=== PATIENT | male | born 1965 | race Two or more races ===

== ENCOUNTER 2024-11-07 09:28 | Outpatient (AMB) | payer MEDICAID, SELFPAY ==
--- NOTE | 2024-11-07 09:42 | ORTHONT_ITS ---
Vital signs 11/07/24 09:49 Height 1.68 m Height Method Measured Weight 93.043 kg Weight Measurement Method Standing Scale BMI 33.0 BP 149/91 H Blood Pressure Source Automatic Cuff Blood Pressure Location Right Upper Arm Position Sitting Respiration 18 Pulse 72 Pulse Source Monitor Temp 97.8 F Temp Source Temporal Artery Scan Pulse Oximetry (%) 92 L Oxygen Delivery Method Room Air Med/Allergies Allergies & Medications Allergies wheat Allergy (Verified 11/07/24 09:50) Medication Reconciliation No Known Home Medications 11/07/24 [History Confirmed 11/07/24] Exam Exam Patient is in no acute distress and is cooperative with the examination today. Breathing is nonlabored. Patient has a normal mood and affect. Bilateral extremities were evaluated and demonstrates sensation intact to light touch. Palpable pedal pulses are present. No significant edema is present. Bilateral hips were examined. The patient has no pain with log roll of the hips. Internal rotation to 30 degrees and external rotation to 30 degrees is painless. Negative FADIR. Right knee is nontender to palpation. Range of motion 0 to 105 degrees Left knee was examined today. The left knee is in varus alignment. Range of motion from 0-115 degrees. Knee is stable to varus and valgus as well as AP translation with <5mm. Patient has a negative McMurrays. There is no pain with patellofemoral compression and no crepitus noted. The knee is tender to palpation medially. Assessment and Plan Problem List (1) Arthritis of left knee: Status: Acute Plan: Patient is a pleasant 59-year-old male with left knee pain and left knee arthritis. We discussed different treatment options. I recommend weightbearing x-rays to better evaluate the severity of the arthritis. He also has a meniscal tear and a subchondral fracture. We will see him back after his x-rays are done Office Procedures GNS Level of Care Nursing/Assessment Patient Status: Initial/New Patient Nursing Assessment/Reassesment: Medication Reconciliation, Update PMH in EMR and Vital Signs Coordination of Care: Complex Care and Chronic Disease 1-5, Education Complex Pt/Fam, Consent,records obtained, informed consent, Lab and Imaging orders, Results/Orders obtained and Staff clarify orders New Patient Charge New Patient Point Assignment: 1109 New Patient Point Charge: GENERAL CLEANER Level 3 (4113-0572) [place] Intake Visit Data Collection New Patient or Established: New Patient (never been to [facility]) Reason for Visit:: LEFT KNEE PAIN Seen by Clinical Staff ONLY (RN/MA): No 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 The pain is affecting his quality life and happiness. He has had over 4 injections and has tried ibuprofen in the past. He reports the pain has not improved significantly with the injections. He was found to have a subchondral fracture as well as meniscal tears on MRI. He has been using a cane. Personal History Occupation: [employer] PMH: none BMI Counceling provided: Yes Pain Pain level (0-10): 6 Pain location: anterior Pain quality: sharp Pain timing: increases with activity Associated signs & symptoms: weakness Ambulatory data Ambulatory device: cane Treatments Number of previous injections: 4 Improvement with previous injections: No Improvement with PT: No Improvement with NSAIDS: no Review of Systems Review of Systems: All systems negative unless otherwise noted in HPI.
[2024-11-07 09:49] VITALS: BP 149/91; PULSE 72; RESP 18; TEMP 36.6; O2SAT 92; BMI 33.0
--- NOTE | 2024-11-07 10:04 | XR_ITS ---
Examination: Bilateral knees 2 views Right lateral knee left lateral knee 2 views Right axial knee left axial knee 2 views TECHNIQUE: Bilateral AP knees standing single view, bilateral PA knees standing 30 degrees flexion single view Standing right lateral knee left lateral knee 2 views Right axial knee left axial knee 2 views total 6 views INDICATIONS: Bilateral knee pain beginning 18 months ago FINDINGS: Moderate osteopenia. Total right knee arthroplasty. Satisfactory alignment. No loosening of the prosthetic components. Moderate to advanced narrowing medial joint space left knee Moderate osteoarthritis left patellofemoral joint IMPRESSION:: Moderate to advanced narrowing medial joint space left knee Moderate osteoarthritis left patellofemoral joint
== END 2024-11-07 10:07 | disposition home or self-care (01) ==
LOC: HODSRG 09:28
PROVIDERS: PCP Nurse Practitioner Family; Referring Provider Nurse Practitioner Family; Supervising Provider Orthopaedic Surgery Adult Reconstructive Orthopaedic Surgery; Visit Provider Orthopaedic Surgery Adult Reconstructive Orthopaedic Surgery
DX: M17.12 Unilateral primary osteoarthritis, left knee (principal); M25.562 Pain in left knee
CPT/HCPCS: 73564; 99203; G0463

== ENCOUNTER 2024-12-04 09:24 | Outpatient (AMB) | payer MEDICAID, SELFPAY ==
[2024-12-04 09:45] VITALS: BP 150/97; PULSE 79; RESP 20; TEMP 36.4; O2SAT 97; BMI 33.5
--- NOTE | 2024-12-04 09:45 | PD.ORTHCLVIS ---
Vital signs 12/04/24 09:45 Height 1.68 m Height Method Measured Weight 94.517 kg Weight Measurement Method Standing Scale BMI 33.5 BP 150/97 H Blood Pressure Source Automatic Cuff Blood Pressure Location Left Upper Arm Position Sitting Respiration 20 Pulse 79 Pulse Source Monitor Temp 97.5 F Temp Source Temporal Artery Scan Pulse Oximetry (%) 97 Oxygen Delivery Method Room Air Med/Allergies Allergies & Medications Allergies wheat Allergy (Verified 12/04/24 09:46) Medication Reconciliation No Known Home Medications 11/07/24 [History Confirmed 12/04/24] Exam Exam Patient is in no acute distress and is cooperative with the examination today. Breathing is nonlabored. Patient has a normal mood and affect. Bilateral extremities were evaluated and demonstrates sensation intact to light touch. Palpable pedal pulses are present. No significant edema is present. Bilateral hips were examined. The patient has no pain with log roll of the hips. Internal rotation to 30 degrees and external rotation to 30 degrees is painless. Negative FADIR. Right knee is nontender to palpation. Range of motion 0 to 105 degrees Left knee was examined today. The left knee is in varus alignment. Range of motion from 0-115 degrees. Knee is stable to varus and valgus as well as AP translation with <5mm. Patient has a negative McMurrays. There is no pain with patellofemoral compression and no crepitus noted. The knee is tender to palpation medially. X-rays demonstrate advanced joint space narrowing medially with obliteration of the medial joint space, osteophytes Assessment and Plan Problem List (1) Arthritis of left knee: Status: Acute Plan: Patient is a pleasant 59-year-old male with left knee pain and left knee arthritis. He has tried significant conservative treatment including over 4 injections, a cane, activity modification, and home exercises as well as anti-inflammatories. We thus discussed total knee replacement as a reasonable option The nature and purpose of the total knee replacement, alternative method(s) of treatment, the material risks involved, and the possibility of complications were fully explained to the patient. The patient does NOT have any of the following contraindications to TKA: - Active infection of the knee joint, OR - Active systemic bacteremia, OR - Active skin infection or open wound at surgical site, OR - Neuropathic arthritis, OR - Severe, rapidly progressive neurological disease, OR - Severe medical condition that makes risks of surgery outweigh the potential benefit The patient was told the most common risks and complications associated with a total knee replacement include, but are not limited to: blood clots in the leg, fatal pulmonary embolism, dislocation of the prosthesis, intraoperative and postoperative fractures of the femur or tibia, infection, failure of the prosthesis or grafting materials, complications from anesthesia, reactions to blood transfusions, postoperative leg length inequality, instability of the knee replacement, nerve damage or injury, vascular injury, delayed wound healing, infection, other injury or even . In addition, there are risks associated with anesthesia given during this operation. Also, the patient was told that after undergoing a total knee replacement there may still be persistent pain or disability. The patient was informed that the success of this operation in part depends upon the mechanical devices which are going to be implanted and that these devices can fail or malfunction, and may need to be repaired or replaced and there are no guarantees as to the longevity of this device or its parts and that it or its parts could fail prematurely. The patient was also notified that during the course of surgery, there may be a need to use bone graft from donors, and that any bone graft used will be carefully screened for communicable diseases, including AIDS, hepatitis, Adams-Creutzfeldt, or other diseases, but despite the screening procedures, there is a small chance that they could contract one of these diseases. Finally, the patient was asked to follow completely and fully with all advice and recommended treatments, and that recovery and ultimate outcome are affected by their compliance with recommended treatment. We discussed the risks, benefits and treatment alternatives, and the patient is interested in proceeding with surgery. We will try to set this up as expeditiously as possible. Office Procedures GNS Level of Care Nursing/Assessment Patient Status: Established Patient Nursing Assessment/Reassesment: Medication Reconciliation, Orthostatic Vitals, Update PMH in EMR and Vital Signs Coordination of Care: Complex Care and Chronic Disease 1-5, Education Complex Pt/Fam, Consent,records obtained, informed consent, Results/Orders obtained and Staff clarify orders Special Needs: Language special needs Established Patient Charge Established Patient Point Assignment: 105 Established Patient Point Charge: Level 3 (80-115) [place] Intake Visit Data Collection New Patient or Established: Established Patient (seen at [facility] within 3 years) Reason for Visit:: LEFT KNEE PAIN/XRAY RESULTS Seen by Clinical Staff ONLY (RN/MA): No Foreclosure Field Inspector Required: Yes PCP or OBGYN visit in last 3 months: Yes Hx Now: No Do You Feel Safe at Home: Yes Authorities Contacted: N/A Questionairres Past Medical History Past Medical History Have you ever been diagnosed with any of the following: Respiratory Problems Smoking: No Smoking Cessation Counseling: No Smoking Exposure: No Subjective Visit Visit for: follow up visit and knee Immunization / Flu Flu Vaccine in the Last 12 Months: Yes Flu Vaccine Exclusion Criteria: Already Received History of Present Illness Chief complaint: LEFT KNEE PAIN /XRAY RESULTS Jose F is a pleasant 59-year-old male with almost 2 years of left knee pain at this time. The pain is affecting his quality life and happiness. He has had over 4 injections and has tried ibuprofen in the past. He reports the pain has not improved significantly with the injections. He was found to have a subchondral fracture as well as meniscal tears on MRI. He has been using a cane. He has done well with his prior right total knee replacement Personal History Occupation: [employer] PMH: none BMI Counceling provided: Yes Pain Pain level (0-10): 6 Pain location: anterior Pain quality: sharp and aching Pain timing: increases with activity Associated signs & symptoms: weakness Ambulatory data Ambulatory device: cane Treatments Number of previous injections: 4 Improvement with previous injections: No Improvement with PT: No Improvement with NSAIDS: no Review of Systems Review of Systems: All systems negative unless otherwise noted in HPI.
== END 2024-12-04 10:18 | disposition home or self-care (01) ==
LOC: HODSRG 09:24
PROVIDERS: PCP Nurse Practitioner Family; Referring Provider Nurse Practitioner Family; Supervising Provider Orthopaedic Surgery Adult Reconstructive Orthopaedic Surgery; Visit Provider Orthopaedic Surgery Adult Reconstructive Orthopaedic Surgery
DX: M17.12 Unilateral primary osteoarthritis, left knee (principal); M25.562 Pain in left knee
CPT/HCPCS: 99213; G0463

== ENCOUNTER → 2025-01-21 | Outpatient (CLI) | payer MEDICAID, SELFPAY ==
--- NOTE | 2025-01-21 16:00 | XR_ITS ---
Examination: CT left lower extremity, without contrast. 2-D sagittal reconstructions. 2-D coronal reconstructions. 3-D reconstructions. Date and time of exam: January 21, 2025, 1558 hours INDICATIONS: Diagnosis primary unilateral osteoarthritis left knee left knee pain 1 year CTDI: vol (mGy): 11.5 DLP: (mGycm): 890 Technique: Multiple 1.25 mm axial sections of the left lower extremity without intravenous contrast have been obtained. 2-D sagittal and coronal reconstructions have been obtained. 3-D reconstructions have been obtained. Low dose protocols were performed. One or more of the following dose reduction techniques were used; automated exposure control, adjustment of the mA and/or KV according to patient size, use of iterative reconstruction technique. Findings: Mild osteopenia. Mild to moderate narrowing left hip joint No left hip fracture or bone contusion or avascular necrosis Advanced narrowing medial joint space left knee Moderate narrowing patellofemoral joint No fracture No dislocation IMPRESSION: Advanced narrowing medial joint space left knee Moderate narrowing patellofemoral joint left knee
== END | disposition home or self-care (01) ==
LOC: CCTX 15:32
PROVIDERS: PCP Nurse Practitioner Family; Referring Provider Orthopaedic Surgery Adult Reconstructive Orthopaedic Surgery; Visit Provider Orthopaedic Surgery Adult Reconstructive Orthopaedic Surgery
DX: M25.862 Other specified joint disorders, left knee (principal)
CPT/HCPCS: 73700

== ENCOUNTER 2025-02-17 12:50 | Outpatient (AMB) | payer MEDICAID, SELFPAY ==
--- NOTE | 2025-02-17 13:21 | ORTHONT_ITS ---
Vital signs 02/17/25 13:23 Height 1.68 m Height Method Stated Weight 95.311 kg Weight Measurement Method Standing Scale BMI 33.7 BP 134/81 H Blood Pressure Source Automatic Cuff Blood Pressure Location Left Upper Arm Position Sitting Respiration 20 Pulse 72 Pulse Source Monitor Temp 97.2 F Temp Source Temporal Artery Scan Pulse Oximetry (%) 96 Oxygen Delivery Method Room Air Med/Allergies Allergies & Medications Allergies wheat Allergy (Verified 02/17/25 13:22) Medication Reconciliation No Known Home Medications 11/07/24 [History Confirmed 02/17/25] Exam Exam Patient is in no acute distress and is cooperative with the examination today. Breathing is nonlabored. Patient has a normal mood and affect. Bilateral extremities were evaluated and demonstrates sensation intact to light touch. Palpable pedal pulses are present. No significant edema is present. Bilateral hips were examined. The patient has no pain with log roll of the hips. Internal rotation to 30 degrees and external rotation to 30 degrees is painless. Negative FADIR. Right knee is nontender to palpation. Range of motion 0 to 105 degrees Left knee was examined today. The left knee is in varus alignment. Range of motion from 0-115 degrees. Knee is stable to varus and valgus as well as AP translation with <5mm. Patient has a negative McMurrays. There is no pain with patellofemoral compression and no crepitus noted. The knee is tender to palpation medially. X-rays demonstrate advanced joint space narrowing medially with obliteration of the medial joint space, osteophytes Assessment and Plan Problem List (1) Arthritis of left knee: Status: Acute Plan: Patient is a pleasant 59-year-old male with left knee pain and left knee arthritis. He has tried significant conservative treatment including over 4 injections, a cane, activity modification, and home exercises as well as anti- inflammatories. We thus discussed total knee replacement as a reasonable option The nature and purpose of the total knee replacement, alternative method(s) of treatment, the material risks involved, and the possibility of complications were fully explained to the patient. The patient does NOT have any of the following contraindications to TKA: - Active infection of the knee joint, OR - Active systemic bacteremia, OR - Active skin infection or open wound at surgical site, OR - Neuropathic arthritis, OR - Severe, rapidly progressive neurological disease, OR - Severe medical condition that makes risks of surgery outweigh the potential benefit The patient was told the most common risks and complications associated with a total knee replacement include, but are not limited to: blood clots in the leg, fatal pulmonary embolism, dislocation of the prosthesis, intraoperative and postoperative fractures of the femur or tibia, infection, failure of the prosthesis or grafting materials, complications from anesthesia, reactions to blood transfusions, postoperative leg length inequality, instability of the knee replacement, nerve damage or injury, vascular injury, delayed wound healing, infection, other injury or even . In addition, there are risks associated with anesthesia given during this operation. Also, the patient was told that after undergoing a total knee replacement there may still be persistent pain or disability. The patient was informed that the success of this operation in part depends upon the mechanical devices which are going to be implanted and that these devices can fail or malfunction, and may need to be repaired or replaced and there are no guarantees as to the longevity of this device or its parts and that it or its parts could fail prematurely. The patient was also notified that during the course of surgery, there may be a need to use bone graft from donors, and that any bone graft used will be carefully screened for communicable diseases, including AIDS, hepatitis, Adams-Creutzfeldt, or other diseases, but despite the screening procedures, there is a small chance that they could contract one of these diseases. Finally, the patient was asked to follow completely and fully with all advice and recommended treatments, and that recovery and ultimate outcome are affected by their compliance with recommended treatment. We discussed the risks, benefits and treatment alternatives, and the patient is interested in proceeding with surgery. We will try to set this up as expeditiously as possible. Office Procedures GNS Level of Care Nursing/Assessment Patient Status: Established Patient Nursing Assessment/Reassesment: Medication Reconciliation, Update PMH in EMR and Vital Signs Coordination of Care: Complex Care and Chronic Disease 1-5, Education Complex Pt/Fam, Consent,records obtained, informed consent, Results/Orders obtained and Staff clarify orders Established Patient Charge Established Patient Point Assignment: 95 Established Patient Point Charge: Level 3 (80-115) [place] Intake Visit Data Collection New Patient or Established: Established Patient (seen at [facility] within 3 years) Reason for Visit:: PRE OP L TKA Seen by Clinical Staff ONLY (RN/MA): No 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 PCP or OBGYN visit in last 3 months: Yes Hx Now: No Do You Feel Safe at Home: Yes Authorities Contacted: N/A Questionairres Past Medical History Past Medical History Have you ever been diagnosed with any of the following: Respiratory Problems Smoking: No Smoking Cessation Counseling: No Smoking Exposure: No Subjective Visit Visit for: follow up visit and knee Immunization / Flu Flu Vaccine in the Last 12 Months: Yes Flu Vaccine Exclusion Criteria: Already Received History of Present Illness Chief complaint: PRE OP L TKA Jose F is a pleasant 59-year-old male with almost 2 years of left knee pain at this time. The pain is affecting his quality life and happiness. He has had over 4 injections and has tried ibuprofen in the past. He reports the pain has not improved significantly with the injections. He was found to have a subchondral fracture as well as meniscal tears on MRI. He has been using a cane. He has done well with his prior right total knee replacement Personal History Occupation: [employer] PMH: none BMI Counceling provided: Yes Pain Pain level (0-10): 6 Pain location: anterior Pain quality: sharp and aching Pain timing: increases with activity Associated signs & symptoms: weakness Ambulatory data Ambulatory device: cane and walker (PATIENT HAS OWN WALKER ) Treatments Number of previous injections: 4 Improvement with previous injections: No Improvement with PT: No Improvement with NSAIDS: no Review of Systems Review of Systems: All systems negative unless otherwise noted in HPI.
[2025-02-17 13:23] VITALS: BP 134/81; PULSE 72; RESP 20; TEMP 36.2; O2SAT 96; BMI 33.7
== END 2025-02-17 13:42 | disposition home or self-care (01) ==
LOC: HODSRG 12:50
PROVIDERS: PCP Nurse Practitioner Family; Referring Provider Nurse Practitioner Family; Supervising Provider Orthopaedic Surgery Adult Reconstructive Orthopaedic Surgery; Visit Provider Orthopaedic Surgery Adult Reconstructive Orthopaedic Surgery
DX: M17.12 Unilateral primary osteoarthritis, left knee (principal)
CPT/HCPCS: 99213; G0463

== ENCOUNTER 2025-02-23 07:40 | Day surgery (SDC) | payer MEDICAID, SELFPAY ==
[2025-02-20 09:54] VITALS: BMI 33.9
[2025-02-20 10:44] LABS: Basophils # (Auto) 0.1 Thou/mm3 (0.0-0.2); Basophils % (Auto) 1 % (0-2.5); Eosinophils # (Auto) 0.1 Thou/mm3 (0.0-0.5); Eosinophils % (Auto) 2 % (0-10); Hematocrit 41.0 % (41.0-53.0); Hemoglobin 13.7 g/dL (13.5-16.0); Immature Granulocytes Auto 0.02 Thou/mm3 (0.00-0.00); Lymphocytes # (Auto) 2.2 Thou/mm3 (1.0-4.8); Lymphocytes % (Auto) 39 % (10-50); Mean Corpuscular HGB Conc 33.4 g/dl (31.0-37.0); Mean Corpuscular Hemoglobin 29.0 pg (25.0-35.0); Mean Corpuscular Volume 87 fL (80-100); Monocytes # (Auto) 0.4 Thou/mm3 (0.0-0.8); Monocytes % (Auto) 8 % (0-12); Neutrophils # (Auto) 2.8 Thou/mm3 (1.8-7.7); Neutrophils % (Auto) 50 % (37-80); Nucleated Red Blood Cell # 0.00 Thou/mm3 (0.00-0.00); Nucleated Red Blood Cell % 0 /100 WBC (0); Platelet Count 301 Thou/mm3 (140-440); RDW Standard Deviation 44.0 fL (35.1-43.9); Red Blood Count 4.72 Miln/mm3 (4.50-5.90); White Blood Count 5.6 Thou/mm3 (3.8-10.6)
[2025-02-20 10:58] LABS: INR 1.0 (0.9-1.3); Partial Thromboplastin Time 26.8 Seconds (22.0-36.0); Prothrombin Time 10.7 Seconds (9.0-12.2)
[2025-02-20 11:02] LABS: Alanine Aminotransferase 22 U/L (10-49); Albumin, Serum 4.6 gm/dL (3.5-5.0); Albumin/Globulin Ratio 1.4 (1.2-2.2); Alkaline Phosphatase 118 U/L (46-116); Anion Gap 9 (7-16); Aspartate Amino Transferase 27 U/L (0-34); BUN/Creatinine Ratio 10 Ratio (12-20); Bilirubin,Total 0.4 mg/dL (0.3-1.2); Blood Urea Nitrogen 7 mg/dL (9-23); Calcium 9.1 mg/dL (8.3-10.6); Calcium (Corrected) 9.1 mg/dL (8.5-10.1); Carbon Dioxide 27.4 mMol/L (20.0-31.0); Chloride 105 mMol/L (98-107); Creatinine (Component) 0.7 mg/dL (0.6-1.3); Estimated Creatinine Clearance 122.8 mL/min (>60); Globulin 3.4 gm/dL (2.3-3.5); Glucose 103 mg/dL (74-106); Osmolality,Calculated 279 (275-295); Potassium 4.0 mMol/L (3.4-5.1); Sodium 141 mMol/L (136-145); Total Protein 8.0 gm/dL (5.7-8.2); eGFR > 60 See Note
[2025-02-23] VITALS (15 sets, daily range): BP systolic 106–130; BP diastolic 67–88; PULSE 57–91; RESP 12–20; TEMP 36.1–36.8; O2SAT 95–99; BMI 33.1
[2025-02-23] MEDS: MELOXICAM 7.5 MG TABLET PO (09:13)
[2025-02-23] MEDS: ACETAMINOPHEN 325 MG TABLET 650 MG PO (09:13)
[2025-02-23] MEDS: PREGABALIN 75 MG CAPSULE PO (09:14)
[2025-02-23] MEDS: RINGERS LACTATED 1000 ML 1,000 ML 20 ML IV (09:15)
--- NOTE | 2025-02-23 11:32 | PD.SUROPNT ---
Date of Procedure 02/23/25 Pre Op Diagnosis left knee osteoarthritis Post Op Diagnosis left knee osteoarthritis Procedure left total knee replacement jocelynn Findings full thickness cartilage loss and osteophytes Procedure Description Indication: The patient is a 59 year old who has a long history of left knee pain. X-rays show degenerative arthritis involving the knee. Over the past several years the patient has had increasing pain, progressive limitation in function. He has failed conservative measures including activity modification, physical therapy, injections, anti-inflammatories, and assistive devices. After a lengthy discussion of the risks and benefits, the patient presents now for total knee replacement. The nature and purpose of the total knee replacement, alternative method(s) of treatment, the material risks involved, and the possibility of complications were fully explained to the patient. The patient was told the most common risks and complications associated with a total knee replacement include, but are not limited to blood clots in the leg, fatal pulmonary embolism, dislocation of the prosthesis, intraoperative and postoperative fractures of the femur or tibia, infection, failure of the prosthesis or grafting materials, complications from anesthesia, reactions to blood transfusions, postoperative leg length inequality, instability of the knee replacement, nerve damage or injury, vascular injury, delayed wound healing, infections, other injury or even . In addition, there are risks associated with anesthesia given during this operation, temporary or permanent numbness on the skin lateral to the incision can be a complication unique to total knee surgery, and kneeling can be painful after knee replacement surgery. Also, the patient was told that after undergoing a total knee replacement there may still be pain or disability. We discussed with the patient that we will be using a robot-assisted technology. We discussed that there is a possibility of converting to manual instrumentation. The patient was informed that the success of this operation in part depends upon the mechanical devices which are going to be implanted and that these devices can fail or malfunction, and may need to be repaired or replaced and there are no guarantees as to the longevity of this device or its part and that it or its parts could fail prematurely. Finally, the patient was asked to follow completely and fully with all advice and recommended treatments, and that recovery and ultimate outcome are affected by their compliance with recommended treatment. Surgical technique: Patient was marked and consented in the pre-operative area. The patient was brought to the operating room and placed on the operating table in a supine position. Prior to positioning, a timeout procedure was performed between the surgeon, the anesthesiologist, and the nursing staff where the patient and the operative side were identified and confirmed. After adequate general anesthetic was obtained, the left lower extremity was prepped and draped in the usual sterile fashion. A weight based dose of Cefazolin were administered within 1 hour prior to incision. The robot was preregistered and calirated before the incision. The extremity was exsanguinated with an esmarch badge and tourniquet inflated to 250mmHg. A midline incision was made. A median parapatellar arthrotomy was made. The patella was subluxed laterally. A medial release was performed to expose the medial tibia. His femoral and tibial pins were placed through an intra incisional manner for both cases. Every effort was made to ensure that the distalmost aspect of the pin was hung in the second cortex. The arrays were then tightened several times to ensure that it was fixed for the remainder of the case. Both femoral and tibial checkpoints were then placed. We then went through the registration process of the bone. We then assessed the knee deformity and attempted to correct it. We also used the robot to aid in judging laxity in both extension and flexion. Final based on laxity and alignment we changed the preoperative assessment to obtain proper proper implant positioning and to correct deformity. Attention was then placed to the tibia. We made a tibial cut using the robot ensuring that both the MCL and the patella tendon were protected with retractors. We then went to the femur and made the posterior cut followed by the anterior cut and the anterior chamfer. The bone was then removed and we made a distal femur cut and a posterior chamfer cut. We verified all cuts. A trial reduction was performed with a size 5 femoral component and a size 5 keeled tibial component. The patella tracked centrally, and no lateral retinacular release was necessary. The trial implants were removed. The arrays, pins, and checkpoints were all removed. We performed a verification that all pins were removed. The cut bone surfaces were lavaged. A size 5 left femoral component, a size 5 keeled tibial component were impacted into position. The knee was felt to be well balanced in the sagittal and coronal plane. The final 5x11 mm cruciate-substituting articular insert was impacted into the tibial tray. The knee was brought out to full extension, flexed up to 120 degrees. It was stable to varus and valgus stress and appropriately balanced in flexion and extension. The wounds were copiously irrigated following deflation of tourniquet. The medial retinaculum was reapproximated with #1 vicryl and quill. The subcutaneous tissues were closed with 0 and 2-0 interrupted Vicryl. The skin was closed with 3-0 Monofilament V loc suture. A sterile dressing was applied. The patient was transferred to a bed and brought to recovery in stable condition. The patient tolerated the procedure well. There were no intraoperative complications. Sponge and needle counts were correct times 2. As the attending surgeon, I attcyn I was present and performed the entire operation. Grafts/Implants Size 5 CR Femur Size 5 Tibia 11mm poly CS Anesthesia spinal Implants Implants comments: mamie Pathology / specimen None Pathology comment: none Estimated Blood Loss 150 Condition Stable Disposition same day Surgeon Lee Motley MD Surgical Staff Operation Date: 02/23/25 12:45 Case Staff MEDICAL TECHNOLOGIST CHEMISTRY: Eliezer Thorne RN First Assistant: Alma Delia Triplett
--- NOTE | 2025-02-23 11:34 | XR_ITS ---
EXAMINATION: Left knee 2 views TECHNIQUE: AP lateral left knee 2 views Date and time: February 23, 2025, 1217 hours INDICATIONS: Postop left knee replacement today. FINDINGS: Total left knee arthroplasty. Satisfactory alignment No fracture IMPRESSION: Total left knee replacement with satisfactory alignment
--- NOTE | 2025-02-23 11:48 | SUR.PHASEI ---
1148 patient arrived to recovery awake and talking with staff, on oxygen 3L via nasal cannula, breathing unlabored, vital signs stable, denies pain and nausea, dressing to left knee; prineo, telfa, abd, webril and ilya wraps, no bleeding noted, bilateral dorsalis pedis pulses present when palpated, patient has good circulation to left lower extremity; skin color normal for patient and warm to touch, post spinal anesthesia assessment via ice, patient has dermatome sensation at t-8 costal margin, will monitor, report received from Eliezer CORTEZ and Jillian TERRELL
--- NOTE | 2025-02-23 12:38 | SUR.PHASEII ---
pt awake, alert, able to follow commands, sitting up in [facility] eating lunch, breathing unlabored, dressing to left lower extremity clean, dry, and intact, report from Sue Carmona RN
[2025-02-23] MEDS: fentaNYL CIT INJ 50 mCg/ML AMP 2ML IVP (12:47)
--- NOTE | 2025-02-23 13:13 | SUR.PHASEII ---
report to Sue Carmona RN
--- NOTE | 2025-02-23 13:57 | SUR.PHASEII ---
post spinal anesthesia anesthesia complete, notified PT patient ready for PT consult
--- NOTE | 2025-02-23 13:58 | SUR.PHASEII ---
patient at [facility] with patient
--- NOTE | 2025-02-23 14:39 | SUR.PHASEII ---
1439 patient cleared by physical therapy to proceed with discharge, voided 200ml in urinal
--- NOTE | 2025-02-23 15:30 | SUR.PHASEII ---
1530 Patient meets discharge criteria from recovery, awake and alert, breathing unlabored, vital signs stable, denies pain, dressing intact; no bleeding noted, denies nausea, patient assisted with dressing into his clothing by his , discharge instructions given to patient and his , signed discharge instructions. Patient given all her belongings prior to discharge, transported via wheelchair and left in a private vehicle.
== END 2025-02-23 15:30 | disposition home or self-care (01) ==
PROVIDERS: Anesthesiology; PCP Nurse Practitioner Family; Referring Provider Orthopaedic Surgery Adult Reconstructive Orthopaedic Surgery; Visit Provider Orthopaedic Surgery Adult Reconstructive Orthopaedic Surgery
PROC: (CPT 20985; principal; 2025-02-23 12:30)
DX: M17.12 Unilateral primary osteoarthritis, left knee (principal); M25.762 Osteophyte, left knee
CPT/HCPCS: 20985; 27447; 36415; 73560; 80048; 80053; 85025; 85610; 85730; 97162; A4217; A4649; C1713; C1776; J0690; J2250; J2704; J2795; J3010; J3490; J7120; A4648; A9270

== ENCOUNTER 2025-03-10 10:03 | Outpatient (AMB) | payer MEDICAID, SELFPAY ==
--- NOTE | 2025-03-10 10:31 | ORTHONT_ITS ---
Vital signs 03/10/25 10:34 Height 1.68 m Height Method Stated Weight 92.164 kg Weight Measurement Method Standing Scale BMI 32.6 BP 134/79 H Blood Pressure Source Automatic Cuff Blood Pressure Location Left Upper Arm Position Sitting Respiration 18 Pulse 88 Pulse Source Monitor Temp 97.3 F Temp Source Temporal Artery Scan Pulse Oximetry (%) 95 Oxygen Delivery Method Room Air Med/Allergies Allergies & Medications Allergies wheat Allergy (Verified 03/10/25 10:35) Medication Reconciliation lisinopril 10 mg tablet 10 mg PO DAILY 02/20/25 [History Confirmed 03/10/25] acetaminophen 500 mg tablet (Acetaminophen Extra Strength) 1,000 mg (2 x 500 mg) PO Q6H PRN pain #90 tabs 02/23/25 [Rx Confirmed 03/10/25] aspirin 81 mg tablet,delayed release 81 mg PO BID #60 tabs 02/23/25 [Rx Confirm ed 03/10/25] doxycycline hyclate 100 mg tablet 100 mg PO BID #14 tabs 02/23/25 [Rx Confirmed 03/10/25] gabapentin 300 mg capsule 300 mg PO .qhs #30 caps 02/23/25 [Rx Confirmed 03/10/25] oxycodone 5 mg tablet 5 mg PO Q6H PRN pain #28 tabs 02/23/25 [Rx Confirmed 03/10/25] sennosides 8.6 mg-docusate sodium 50 mg tablet (Senna-S) 1 tab-cap PO QDAY #30 tabs 02/23/25 [Rx Confirmed 03/10/25] oxycodone 5 mg tablet 5 mg PO Q6H PRN pain #28 tabs 03/03/25 [Rx Confirmed 03/10/25] ibuprofen 400 mg tablet 400 mg PO Q8H PRN pain #90 tabs 03/10/25 [Rx Confirmed 03/10/25] Exam Exam Patient is in no acute distress and is cooperative with the examination today. Breathing is nonlabored. Patient has a normal mood and affect. The patient has a gait that is nonantalgic Bilateral extremities were evaluated and demonstrates sensation intact to light touch. Palpable pedal pulses are present. No significant edema is present. Bilateral hips were examined. The patient has no pain with log roll of the hips. Internal rotation to 30 degrees and external rotation to 30 degrees is painless. Negative FADIR. Left knee incision is clean dry and intact. Knee feels stable varus valgus stress as well as AP translation Assessment and Plan Problem List (1) Arthritis of left knee: Status: Acute Plan: Patient is doing well status post left total knee replacement. Will see him in 4 weeks for routine follow-up Office Procedures GNS Level of Care Nursing/Assessment Patient Status: Established Patient Nursing Assessment/Reassesment: Medication Reconciliation, Update PMH in EMR and Vital Signs Coordination of Care: Complex Care and Chronic Disease 1-5, Education Complex Pt/Fam, Consent,records obtained, informed consent, Results/Orders obtained and Staff clarify orders Established Patient Charge Established Patient Point Assignment: 95 Established Patient Point Charge: EP Level 3 (80-115) MA Intake Visit Data Collection New Patient or Established: Established Patient (seen at [facility] within 3 years) Reason for Visit:: 2 WK POST OP L TKA Seen by Clinical Staff ONLY (RN/MA): No 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 PCP or OBGYN visit in last 3 months: Yes Hx Now: No Do You Feel Safe at Home: Yes Authorities Contacted: N/A Questionairres Past Medical History Past Medical History Have you ever been diagnosed with any of the following: Neurological Problems Seizures: No Cardiology Problems Congestive Heart Failure: No Hypertension: Yes Respiratory Problems Chronic Obstructive Pulmonary Disease (COPD): No Smoking: No Smoking Cessation Counseling: No Smoking Exposure: No Stomache/Intestinal Problems Hepatitis: No Genital/Urinary Problems Renal Disease: No Musculoskeletal Problems Arthritis: Yes Endocrine Problems Diabetes Mellitus Type 1: No Diabetes Mellitus Type 2: No Other Problems Hospitalization: No Developmental Delay: No Shingles: No Blood Transfusions: No Blood Transfusion Reaction: No Anesthesia Reactions: No MRSA: No VRSA: No Vancomycin-Resistant Enterococci: No Human Immunodeficiency Virus (HIV): No Chicken Pox: No Clostridium Difficile: No Cancer: No Subjective Visit Visit for: follow up visit and knee Immunization / Flu Flu Vaccine in the Last 12 Months: Yes Flu Vaccine Exclusion Criteria: Already Received History of Present Illness Chief complaint: PRE OP L TKA Jose F is a pleasant 59-year-old male with almost 2 years of left knee pain at this time. He is 2 weeks s/p l tka Personal History Occupation: [employer] PMH: none BMI Counceling provided: Yes Pain Pain level (0-10): 6 Pain location: anterior Pain quality: sharp and aching Pain timing: increases with activity Associated signs & symptoms: weakness Ambulatory data Ambulatory device: cane and walker (PATIENT HAS OWN WALKER ) Treatments Number of previous injections: 4 Improvement with previous injections: No Improvement with PT: No Improvement with NSAIDS: no Review of Systems Review of Systems: All systems negative unless otherwise noted in HPI.
[2025-03-10 10:34] VITALS: BP 134/79; PULSE 88; RESP 18; TEMP 36.3; O2SAT 95; BMI 32.6
== END 2025-03-10 10:37 | disposition home or self-care (01) ==
LOC: HODSRG 10:03
PROVIDERS: PCP Nurse Practitioner Family; Referring Provider Nurse Practitioner Family; Supervising Provider Orthopaedic Surgery Adult Reconstructive Orthopaedic Surgery; Visit Provider Orthopaedic Surgery Adult Reconstructive Orthopaedic Surgery
DX: Z47.1 Aftercare following joint replacement surgery (principal); Z96.652 Presence of left artificial knee joint; I10 Essential (primary) hypertension
CPT/HCPCS: 99213; G0463

== ENCOUNTER 2025-04-07 10:48 | Outpatient (AMB) | payer MEDICAID, SELFPAY ==
--- NOTE | 2025-04-07 11:30 | PD.ORTHCLVIS ---
Vital signs 04/07/25 11:31 Height 1.68 m Height Method Stated Weight 94.007 kg Weight Measurement Method Standing Scale BMI 33.3 BP 143/90 H Blood Pressure Source Automatic Cuff Blood Pressure Location Left Upper Arm Position Sitting Respiration 18 Pulse 83 Pulse Source Monitor Temp 97.3 F Temp Source Temporal Artery Scan Pulse Oximetry (%) 93 L Oxygen Delivery Method Room Air Med/Allergies Allergies & Medications Allergies wheat Allergy (Verified 04/07/25 11:31) Medication Reconciliation lisinopril 10 mg tablet 10 mg PO DAILY 02/20/25 [History Confirmed 04/07/25] acetaminophen 500 mg tablet (Acetaminophen Extra Strength) 1,000 mg (2 x 500 mg) PO Q6H PRN pain #90 tabs 02/23/25 [Rx Confirmed 04/07/25] aspirin 81 mg tablet,delayed release 81 mg PO BID #60 tabs 02/23/25 [Rx Confirmed 04/07/25] doxycycline hyclate 100 mg tablet 100 mg PO BID #14 tabs 02/23/25 [Rx Confirmed 04/07/25] gabapentin 300 mg capsule 300 mg PO .qhs #30 caps 02/23/25 [Rx Confirmed 04/07/25] oxycodone 5 mg tablet 5 mg PO Q6H PRN pain #28 tabs 02/23/25 [Rx Confirmed 04/07/25] sennosides 8.6 mg-docusate sodium 50 mg tablet (Senna-S) 1 tab-cap PO QDAY #30 tabs 02/23/25 [Rx Confirmed 04/07/25] oxycodone 5 mg tablet 5 mg PO Q6H PRN pain #28 tabs 03/03/25 [Rx Confirmed 04/07/25] ibuprofen 400 mg tablet 400 mg PO Q8H PRN pain #90 tabs 03/10/25 [Rx Confirmed 04/07/25] Exam Exam Patient is in no acute distress and is cooperative with the examination today. Breathing is nonlabored. Patient has a normal mood and affect. The patient has a gait that is nonantalgic Bilateral extremities were evaluated and demonstrates sensation intact to light touch. Palpable pedal pulses are present. No significant edema is present. Bilateral hips were examined. The patient has no pain with log roll of the hips. Internal rotation to 30 degrees and external rotation to 30 degrees is painless. Negative FADIR. Left knee incision is clean dry and intact. Knee feels stable varus valgus stress as well as AP translation. Range of motion 0 to 45 degrees Assessment and Plan Problem List (1) Arthritis of left knee: Status: Acute Plan: Patient is doing well status post left total knee replacement. Will see him in 8 weeks for routine follow-up Will get new x-rays Office Procedures GNS Level of Care Nursing/Assessment Patient Status: Established Patient Nursing Assessment/Reassesment: Medication Reconciliation, Update PMH in EMR and Vital Signs Coordination of Care: Complex Care and Chronic Disease 1-5, Education Complex Pt/Fam, Consent,records obtained, informed consent, Results/Orders obtained and Staff clarify orders Established Patient Charge Established Patient Point Assignment: 95 Established Patient Point Charge: EP Level 3 (80-115) MA Intake Visit Data Collection New Patient or Established: Established Patient (seen at [facility] within 3 years) Reason for Visit:: 6 WK FU Seen by Clinical Staff ONLY (RN/MA): No 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 PCP or OBGYN visit in last 3 months: Yes Hx Now: No Do You Feel Safe at Home: Yes Authorities Contacted: N/A Questionairres Past Medical History Past Medical History Have you ever been diagnosed with any of the following: Neurological Problems Seizures: No Cardiology Problems Congestive Heart Failure: No Hypertension: Yes Respiratory Problems Chronic Obstructive Pulmonary Disease (COPD): No Smoking: No Smoking Cessation Counseling: No Smoking Exposure: No Stomache/Intestinal Problems Hepatitis: No Genital/Urinary Problems Renal Disease: No Musculoskeletal Problems Arthritis: Yes Endocrine Problems Diabetes Mellitus Type 1: No Diabetes Mellitus Type 2: No Other Problems Hospitalization: No Developmental Delay: No Shingles: No Blood Transfusions: No Blood Transfusion Reaction: No Anesthesia Reactions: No MRSA: No VRSA: No Vancomycin-Resistant Enterococci: No Human Immunodeficiency Virus (HIV): No Chicken Pox: No Clostridium Difficile: No Cancer: No Subjective Visit Visit for: follow up visit and knee Immunization / Flu Flu Vaccine in the Last 12 Months: Yes Flu Vaccine Exclusion Criteria: Already Received History of Present Illness Chief complaint: PRE OP L TKA Jose F is a pleasant 59-year-old male with almost 2 years of left knee pain at this time. He is 6 weeks s/p l tka Personal History Occupation: [employer] PMH: none BMI Counceling provided: Yes Pain Pain level (0-10): 6 Pain location: anterior Pain quality: sharp and aching Pain timing: increases with activity Associated signs & symptoms: weakness Ambulatory data Ambulatory device: cane and walker (PATIENT HAS OWN WALKER ) Treatments Number of previous injections: 4 Improvement with previous injections: No Improvement with PT: No Improvement with NSAIDS: no Review of Systems Review of Systems: All systems negative unless otherwise noted in HPI.
[2025-04-07 11:31] VITALS: BP 143/90; PULSE 83; RESP 18; TEMP 36.3; O2SAT 93; BMI 33.3
--- NOTE | 2025-04-07 11:34 | XR_ITS ---
EXAMINATION: Bilateral AP knees single view Upright PA left knee standing flexion, standing lateral, axial left knee 3 views total 4 views TECHNIQUE: Bilateral AP knees single view Upright PA left knee standing flexion, standing left knee lateral, axial left knee 3 views total 4 views Date and time: April 07, 2025, 1144 hours INDICATIONS: Left knee replacement February 23, 2025, right knee replacement 3 years ago. FINDINGS: Moderate osteopenia Bilateral total knee arthroplasties. Satisfactory alignment No loosening of the prosthetic components No patellar dislocation IMPRESSION: Bilateral total knee arthroplasties with satisfactory alignment
== END 2025-04-07 11:35 | disposition home or self-care (01) ==
LOC: HODSRG 10:48
PROVIDERS: PCP Nurse Practitioner Family; Referring Provider Nurse Practitioner Family; Supervising Provider Orthopaedic Surgery Adult Reconstructive Orthopaedic Surgery; Visit Provider Orthopaedic Surgery Adult Reconstructive Orthopaedic Surgery
DX: Z47.1 Aftercare following joint replacement surgery (principal); Z96.652 Presence of left artificial knee joint; I10 Essential (primary) hypertension
CPT/HCPCS: 73564; 99213; G0463